=== PATIENT | male | born 1980 | race Caucasian/White ===

== ENCOUNTER → 2024-10-17 | Outpatient (CLI) | payer BC, SELFPAY ==
--- NOTE | 2024-10-17 16:17 | XR_ITS ---
Examination: Foot, left, 3 views Technique: AP, oblique, lateral views foot, 3 views Date and time of exam: 12/17/2023 1746 hours INDICATIONS: Left foot pain beginning one week ago, diagnosis gout FINDINGS: Mild bunion deformity Mild narrowing first metatarsophalangeal joint No erosive arthritis involving the first metatarsophalangeal joint No cortical bone destruction No fracture IMPRESSION: Mild bunion deformity Mild narrowing first metatarsophalangeal joint No erosive arthritis involving the first metatarsophalangeal joint
[2024-10-17 18:02] LABS: Sed Rate (ESR) 2 mm/hr (0-15)
[2024-10-17 18:18] LABS: C-Reactive Protein < 0.4 mg/dL (0.0-0.9); Uric Acid 8.6 mg/dL (3.7-9.2)
[2024-10-24 07:39] LABS: ANA Screen, IFA NEGATIVE (NEGATIVE)
== END | disposition home or self-care (01) ==
LOC: CDIM 16:11 → COPL 17:05
PROVIDERS: Referring Provider Nurse Practitioner Family; Visit Provider Radiology Diagnostic Radiology
DX: M21.612 Bunion of left foot (principal); M25.872 Other specified joint disorders, left ankle and foot; M25.572 Pain in left ankle and joints of left foot
CPT/HCPCS: 36415; 73630; 84550; 85652; 86038; 86140